=== PATIENT | female | born 1935 | race Caucasian/White ===

== ENCOUNTER 2019-06-04 09:29 | Inpatient (IN) | payer MEDICARE, BC ==
[2019-06-04 10:06] LABS: ADD MAN DIFF? NO
[2019-06-04] MEDS: ONDANSETRON 4 MG INJ IV (10:08)
[2019-06-04] MEDS: morphine 4 MG/ML VIAL IV (10:09)
[2019-06-04 10:17] LABS: WHITE BLOOD COUNT 13.1 10^3/ul (4.8-10.8)
[2019-06-04 10:17] LABS: ABNORMAL IP MESSAGE 1; BASOPHILS % 0.2 % (0.0-2.0); EOSINOPHILS % 0.1 % (0.0-7.0); HEMATOCRIT 41.4 % (37.0-47.0); LYMPHOCYTES # 0.6 10^3/ul (0.8-2.9); LYMPHOCYTES % 4.4 % (15.0-51.0); MEAN CORPUSCULAR HEMOGLOBIN 29.8 pg (29.0-33.0); MEAN CORPUSCULAR HGB CONC 33.8 g/dl (32.0-37.0); MEAN CORPUSCULAR VOLUME 88.1 fl (82.0-101.0); MEAN PLATELET VOLUME 12.7 fl (7.4-10.4); MONOCYTE # 0.9 10^3/ul (0.3-0.9); MONOCYTES % 7.1 % (0.0-11.0); NEUTROPHIL # 11.5 10^3/ul (1.6-7.5); NEUTROPHILS % 87.7 % (39.0-77.0); PLATELET COUNT 140 10^3/UL (140-415); RED CELL DISTRIBUTION WIDTH 12.3 % (11.5-14.5)
[2019-06-04 10:19] LABS: POSITIVE DIFF @See below
[2019-06-04 10:31] LABS: ALANINE AMINOTRANSFERASE 25 IU/L (13-69); ALBUMIN 4.6 g/dl (3.3-4.9); ALBUMIN/GLOBULIN RATIO 1.48; ALKALINE PHOSPHATASE 62 IU/L (42-121); ANION GAP 14 (5-13); ASPARTATE AMINO TRANSFERASE 48 IU/L (15-46); BILIRUBIN,INDIRECT 0.8 mg/dl (0-1.1); BILIRUBIN,TOTAL 0.8 mg/dl (0.2-1.3); BLOOD UREA NITROGEN 20 mg/dl (7-20); CARBON DIOXIDE 23 mmol/L (21-31); CHLORIDE 104 mmol/L (97-110); CREATININE 0.63 mg/dl (0.44-1.00); GLUCOSE 212 mg/dl (70-220); INR 0.94; POTASSIUM 4.2 mmol/L (3.5-5.1); PROTIME 12.7 Sec (11.9-14.9); SODIUM 141 mmol/L (135-144); TOTAL PROTEIN 7.7 g/dl (6.1-8.1)
[2019-06-04 10:32] LABS: PARTIAL THROMBOPLASTIN TIME 24.6 Sec (23.0-35.0)
[2019-06-04 10:42] LABS: TROPONIN-I 0.018 ng/ml (0.000-0.120)
[2019-06-04] MEDS ORDERED: ONDANSETRON 4 MG INJ IV (11:00)
[2019-06-04] MEDS ORDERED: ACETAMINOPHEN 325 MG TAB PO ×2 (11:00→12:00)
[2019-06-04] MEDS: LIDOCAINE 2% VISC 15 ML CUP PO (11:55)
[2019-06-04] MEDS ORDERED: DOCUSATE SODIUM 100 MG CAP PO (12:00)
[2019-06-04] MEDS ORDERED: BISACODYL (EC) 5 MG TAB PO (12:00)
[2019-06-04] MEDS ORDERED: HYDROCODONE/APAP (5/325) TAB PO (12:00)
[2019-06-04] MEDS ORDERED: MAGNESIUM HYDROXIDE 30ML CUP PO (12:00)
[2019-06-04] MEDS ORDERED: ZOLPIDEM 5 MG TAB PO (12:00)
[2019-06-04] MEDS ORDERED: NA PHOSPHATE/BIPHOS 133 ML ENEMA PR (12:00)
[2019-06-04 12:03] LABS: ADD UMIC YES; UR ASCORBIC ACID 40 mg/dL (NEGATIVE); UR BACTERIA FEW /HPF (NONE SEEN); UR BILIRUBIN (Dip) NEGATIVE (NEGATIVE); UR BLOOD (Dip) NEGATIVE (NEGATIVE); UR CLARITY SLIGHTLY CLOUDY (CLEAR); UR COLOR YELLOW (YELLOW); UR GLUCOSE (Dip) 3+ mg/dL (NEGATIVE); UR KETONES (Dip) 1+ mg/dL (NEGATIVE); UR LEUKOCYTE ESTERASE (Dip) 1+ Leu/ul (NEGATIVE); UR MUCUS FEW /HPF (NONE SEEN); UR NITRITE (Dip) NEGATIVE (NEGATIVE); UR RBC 2 /HPF (0-5); UR SPECIFIC GRAVITY (Dip) 1.022 (1.003-1.030); UR TOTAL PROTEIN (Dip) NEGATIVE (NEGATIVE); UR UROBILINOGEN (Dip) NEGATIVE (NEGATIVE); UR WBC 36 /HPF (0-5)
[2019-06-04] MEDS: SOD CHLORIDE 0.9% 1,000 ML IV ×2 (12:21→21:25)
[2019-06-04] MEDS: HYDROCODONE/APAP (5/325) TAB PO ×2 (15:32→21:25)
[2019-06-05 05:50] LABS: ADD MAN DIFF? NO
[2019-06-05 05:55] LABS: WHITE BLOOD COUNT 9.3 10^3/ul (4.8-10.8)
[2019-06-05 05:55] LABS: ABNORMAL IP MESSAGE 1; BASOPHILS % 0.4 % (0.0-2.0); EOSINOPHILS # 0.1 10^3/ul (0.0-0.5); EOSINOPHILS % 1.1 % (0.0-7.0); HEMATOCRIT 31.1 % (37.0-47.0); HEMOGLOBIN 10.5 g/dl (12.0-16.0); LYMPHOCYTES # 2.1 10^3/ul (0.8-2.9); MEAN CORPUSCULAR HEMOGLOBIN 30.3 pg (29.0-33.0); MEAN CORPUSCULAR HGB CONC 33.8 g/dl (32.0-37.0); MEAN CORPUSCULAR VOLUME 89.6 fl (82.0-101.0); MEAN PLATELET VOLUME 12.7 fl (7.4-10.4); NEUTROPHILS % 64.1 % (39.0-77.0); PLATELET COUNT 86 10^3/UL (140-415); RED BLOOD COUNT 3.47 10^6/ul (4.20-5.40)
[2019-06-05 06:36] LABS: POSITIVE DIFF @See below
[2019-06-05 06:40] LABS: ALANINE AMINOTRANSFERASE 39 IU/L (13-69); ALBUMIN 2.9 g/dl (3.3-4.9); ALKALINE PHOSPHATASE 40 IU/L (42-121); ANION GAP 3 (5-13); ASPARTATE AMINO TRANSFERASE 84 IU/L (15-46); BILIRUBIN,INDIRECT 0.6 mg/dl (0-1.1); BILIRUBIN,TOTAL 0.6 mg/dl (0.2-1.3); BLOOD UREA NITROGEN 17 mg/dl (7-20); CALCIUM 8.1 mg/dl (8.4-10.2); CARBON DIOXIDE 29 mmol/L (21-31); CHLORIDE 109 mmol/L (97-110); CREATININE 0.72 mg/dl (0.44-1.00); GLUCOSE 110 mg/dl (70-220); SODIUM 141 mmol/L (135-144); TOTAL PROTEIN 5.3 g/dl (6.1-8.1)
[2019-06-05] MEDS: SOD CHLORIDE 0.9% 1,000 ML IV ×4 (07:38→18:47)
[2019-06-05 08:39] LABS: HEMOGLOBIN A1C 5.1 % (0-5.9)
[2019-06-05] MEDS: morphine 2 MG INJ IV (09:49)
[2019-06-05 11:50] LABS: ADD MAN DIFF? NO
[2019-06-05 11:53] LABS: ABNORMAL IP MESSAGE 1; BASOPHILS % 0.3 % (0.0-2.0); EOSINOPHILS # 0.1 10^3/ul (0.0-0.5); EOSINOPHILS % 0.7 % (0.0-7.0); HEMOGLOBIN 10.2 g/dl (12.0-16.0); LYMPHOCYTES # 1.3 10^3/ul (0.8-2.9); LYMPHOCYTES % 14.2 % (15.0-51.0); MEAN CORPUSCULAR HEMOGLOBIN 29.6 pg (29.0-33.0); MEAN CORPUSCULAR HGB CONC 32.9 g/dl (32.0-37.0); MEAN CORPUSCULAR VOLUME 89.9 fl (82.0-101.0); MEAN PLATELET VOLUME 12.6 fl (7.4-10.4); MONOCYTE # 0.9 10^3/ul (0.3-0.9); MONOCYTES % 9.8 % (0.0-11.0); NEUTROPHIL # 6.6 10^3/ul (1.6-7.5); NEUTROPHILS % 74.6 % (39.0-77.0); PLATELET COUNT 78 10^3/UL (140-415); RED BLOOD COUNT 3.45 10^6/ul (4.20-5.40); RED CELL DISTRIBUTION WIDTH 12.9 % (11.5-14.5)
[2019-06-05 11:53] LABS: WHITE BLOOD COUNT 8.9 10^3/ul (4.8-10.8)
[2019-06-05 11:57] LABS: POSITIVE DIFF @See below
[2019-06-05 13:00] LABS: TYPE AND SCREEN 1
[2019-06-05] MEDS ORDERED: ONDANSETRON 4 MG INJ (13:08)
[2019-06-05] MEDS ORDERED: CEFAZOLIN 1 GM INJ (13:08)
[2019-06-05] MEDS ORDERED: GLYCOPYRROLATE 0.4 MG INJ (13:08)
[2019-06-05] MEDS ORDERED: DEXAMETHASONE 4 MG/ML 5 ML INJ (13:08)
[2019-06-05] MEDS ORDERED: PROPOFOL 200 MG INJ (13:08)
[2019-06-05] MEDS ORDERED: SEVOFLURANE 15 MIN (13:08)
[2019-06-05] MEDS ORDERED: ROCURONIUM 50 MG INJ (13:08)
[2019-06-05] MEDS ORDERED: NEOSTIGMINE 3 MG/3 ML SYRINGE (13:08)
[2019-06-05] MEDS ORDERED: LIDOCAINE 2% (SDV) 5 ML INJ (13:08)
[2019-06-05] MEDS ORDERED: ESMOLOL 100 MG INJ (13:08)
[2019-06-05] MEDS ORDERED: morphine 2 MG INJ IV ×2 (13:30)
[2019-06-05] MEDS ORDERED: LABETALOL HCL 20MG INJ IV (13:30)
[2019-06-05] MEDS ORDERED: FENTAnyl 50 MCG/ML VIAL IV ×2 (13:30)
[2019-06-05] MEDS ORDERED: ALBUMIN HUMAN 5% 250 ML IV (13:30)
[2019-06-05] MEDS ORDERED: ONDANSETRON 4 MG INJ IV (13:30)
[2019-06-05] MEDS: POLYMYXIN/BACITRACIN 1L IRRIG (14:44)
[2019-06-05] MEDS ORDERED: HYDROmorphONE 2 MG/ML SYG (14:51)
[2019-06-05] MEDS: ACETAMINOPHEN 1000MG/100ML IV 100 ML IVPB (16:00)
[2019-06-05 16:16] LABS: ADD MAN DIFF? NO
[2019-06-05 16:20] LABS: BASOPHILS % 0.4 % (0.0-2.0); EOSINOPHILS # 0.1 10^3/ul (0.0-0.5); EOSINOPHILS % 0.6 % (0.0-7.0); HEMATOCRIT 23.1 % (37.0-47.0); HEMOGLOBIN 7.7 g/dl (12.0-16.0); LYMPHOCYTES # 0.7 10^3/ul (0.8-2.9); LYMPHOCYTES % 6.9 % (15.0-51.0); MEAN CORPUSCULAR HEMOGLOBIN 30.3 pg (29.0-33.0); MEAN CORPUSCULAR HGB CONC 33.3 g/dl (32.0-37.0); MEAN CORPUSCULAR VOLUME 90.9 fl (82.0-101.0); MEAN PLATELET VOLUME 11.3 fl (7.4-10.4); MONOCYTE # 0.7 10^3/ul (0.3-0.9); MONOCYTES % 6.3 % (0.0-11.0); NEUTROPHIL # 8.9 10^3/ul (1.6-7.5); NEUTROPHILS % 84.8 % (39.0-77.0); PLATELET COUNT 108 10^3/UL (140-415); RED BLOOD COUNT 2.54 10^6/ul (4.20-5.40)
[2019-06-05 16:20] LABS: WHITE BLOOD COUNT 10.4 10^3/ul (4.8-10.8)
[2019-06-05] MEDS ORDERED: morphine 4 MG/ML VIAL IV (17:30)
[2019-06-05 18:17] LABS: ADD MAN DIFF? NO
[2019-06-05 18:20] LABS: BASOPHILS % 0.2 % (0.0-2.0); EOSINOPHILS % 0.1 % (0.0-7.0); HEMATOCRIT 25.9 % (37.0-47.0); HEMOGLOBIN 8.7 g/dl (12.0-16.0); LYMPHOCYTES # 0.8 10^3/ul (0.8-2.9); LYMPHOCYTES % 5.7 % (15.0-51.0); MEAN CORPUSCULAR HEMOGLOBIN 30.6 pg (29.0-33.0); MEAN CORPUSCULAR HGB CONC 33.6 g/dl (32.0-37.0); MEAN CORPUSCULAR VOLUME 91.2 fl (82.0-101.0); MEAN PLATELET VOLUME 11.5 fl (7.4-10.4); MONOCYTE # 0.8 10^3/ul (0.3-0.9); MONOCYTES % 5.3 % (0.0-11.0); NEUTROPHIL # 12.7 10^3/ul (1.6-7.5); NEUTROPHILS % 87.9 % (39.0-77.0); PLATELET COUNT 121 10^3/UL (140-415); RED BLOOD COUNT 2.84 10^6/ul (4.20-5.40)
[2019-06-05 18:20] LABS: WHITE BLOOD COUNT 14.5 10^3/ul (4.8-10.8)
[2019-06-05 19:23] LABS: ANION GAP 8 (5-13); BLOOD UREA NITROGEN 14 mg/dl (7-20); CALCIUM 7.3 mg/dl (8.4-10.2); CARBON DIOXIDE 22 mmol/L (21-31); CHLORIDE 109 mmol/L (97-110); CREATININE 0.56 mg/dl (0.44-1.00); GLUCOSE 149 mg/dl (70-220); SODIUM 139 mmol/L (135-144)
[2019-06-05] MEDS: ONDANSETRON 4 MG INJ IV (19:32)
[2019-06-05] MEDS: NACL 0.9% 3 ML SYG IV (19:33)
[2019-06-06] MEDS: SOD CHLORIDE 0.9% 1,000 ML IV ×3 (01:33→21:10)
[2019-06-06 05:45] LABS: WHITE BLOOD COUNT 9.2 10^3/ul (4.8-10.8)
[2019-06-06 05:45] LABS: ADD MAN DIFF? NO; BASOPHILS % 0.1 % (0.0-2.0); HEMOGLOBIN 7.2 g/dl (12.0-16.0); LYMPHOCYTES # 0.6 10^3/ul (0.8-2.9); LYMPHOCYTES % 6.9 % (15.0-51.0); MEAN CORPUSCULAR HEMOGLOBIN 29.8 pg (29.0-33.0); MEAN CORPUSCULAR HGB CONC 32.7 g/dl (32.0-37.0); MEAN CORPUSCULAR VOLUME 90.9 fl (82.0-101.0); MEAN PLATELET VOLUME 12.1 fl (7.4-10.4); MONOCYTE # 0.9 10^3/ul (0.3-0.9); MONOCYTES % 9.6 % (0.0-11.0); NEUTROPHIL # 7.6 10^3/ul (1.6-7.5); NEUTROPHILS % 83.1 % (39.0-77.0); PLATELET COUNT 108 10^3/UL (140-415); RED BLOOD COUNT 2.42 10^6/ul (4.20-5.40); RED CELL DISTRIBUTION WIDTH 12.9 % (11.5-14.5)
[2019-06-06 06:02] LABS: INR 1.16; PROTIME 14.9 Sec (11.9-14.9); PT RATIO 1.2
[2019-06-06 06:07] LABS: ANION GAP 8 (5-13); BLOOD UREA NITROGEN 15 mg/dl (7-20); CALCIUM 7.5 mg/dl (8.4-10.2); CARBON DIOXIDE 21 mmol/L (21-31); CHLORIDE 112 mmol/L (97-110); CREATININE 0.58 mg/dl (0.44-1.00); GLUCOSE 125 mg/dl (70-220); POTASSIUM 3.9 mmol/L (3.5-5.1); SODIUM 141 mmol/L (135-144)
[2019-06-06] MEDS: FERROUS SULFATE (EC) 325 MG TAB PO (21:10)
[2019-06-06] MEDS: DICLOFENAC SODIUM 1% GEL 100 GM TUBE TP (21:10)
[2019-06-07] MEDS: HYDROCODONE/APAP (5/325) TAB PO ×2 (04:41→11:48)
[2019-06-07 05:21] LABS: ADD MAN DIFF? NO
[2019-06-07 05:25] LABS: ABNORMAL IP MESSAGE 1; BASOPHILS % 0.2 % (0.0-2.0); EOSINOPHILS # 0.1 10^3/ul (0.0-0.5); EOSINOPHILS % 0.7 % (0.0-7.0); LYMPHOCYTES # 1.5 10^3/ul (0.8-2.9); LYMPHOCYTES % 16.4 % (15.0-51.0); MEAN CORPUSCULAR HEMOGLOBIN 30.4 pg (29.0-33.0); MEAN CORPUSCULAR VOLUME 89.3 fl (82.0-101.0); MEAN PLATELET VOLUME 11.9 fl (7.4-10.4); MONOCYTES % 10.7 % (0.0-11.0); NEUTROPHIL # 6.6 10^3/ul (1.6-7.5); NEUTROPHILS % 71.6 % (39.0-77.0); PLATELET COUNT 121 10^3/UL (140-415); RED BLOOD COUNT 2.24 10^6/ul (4.20-5.40); RED CELL DISTRIBUTION WIDTH 13.2 % (11.5-14.5)
[2019-06-07 05:25] LABS: WHITE BLOOD COUNT 9.2 10^3/ul (4.8-10.8)
[2019-06-07 05:55] LABS: INR 1.16; PROTIME 14.9 Sec (11.9-14.9); PT RATIO 1.2
[2019-06-07 06:07] LABS: HEMOGLOBIN 6.8 g/dl (12.0-16.0); POSITIVE DIFF @See below
[2019-06-07 06:11] LABS: ANION GAP 6 (5-13); BLOOD UREA NITROGEN 14 mg/dl (7-20); CALCIUM 7.8 mg/dl (8.4-10.2); CARBON DIOXIDE 22 mmol/L (21-31); CHLORIDE 112 mmol/L (97-110); CREATININE 0.54 mg/dl (0.44-1.00); GLUCOSE 129 mg/dl (70-220); POTASSIUM 3.6 mmol/L (3.5-5.1); SODIUM 140 mmol/L (135-144)
[2019-06-07 07:47] LABS: IMMEDIATE SPIN CROSSMATCH 1 3
[2019-06-07] MEDS: FERROUS SULFATE (EC) 325 MG TAB PO ×3 (09:40→21:23)
[2019-06-07] MEDS: DICLOFENAC SODIUM 1% GEL 100 GM TUBE TP ×4 (09:40→21:23)
[2019-06-07] MEDS: SOD CHLORIDE 0.9% 250 ML IV* (09:45)
[2019-06-07] MEDS: METHYLNALTREXONE 12 MG/0.6 ML VIAL SC (21:23)
[2019-06-08 05:15] LABS: ADD MAN DIFF? NO
[2019-06-08 05:20] LABS: BASOPHILS % 0.4 % (0.0-2.0); EOSINOPHILS # 0.2 10^3/ul (0.0-0.5); EOSINOPHILS % 2.2 % (0.0-7.0); HEMATOCRIT 25.1 % (37.0-47.0); HEMOGLOBIN 8.3 g/dl (12.0-16.0); LYMPHOCYTES # 1.7 10^3/ul (0.8-2.9); LYMPHOCYTES % 19.4 % (15.0-51.0); MEAN CORPUSCULAR HEMOGLOBIN 29.5 pg (29.0-33.0); MEAN CORPUSCULAR HGB CONC 33.1 g/dl (32.0-37.0); MEAN CORPUSCULAR VOLUME 89.3 fl (82.0-101.0); MEAN PLATELET VOLUME 11.2 fl (7.4-10.4); MONOCYTE # 0.8 10^3/ul (0.3-0.9); MONOCYTES % 9.2 % (0.0-11.0); NEUTROPHIL # 6.1 10^3/ul (1.6-7.5); NEUTROPHILS % 68.2 % (39.0-77.0); NUCLEATED RED BLOOD CELLS # 0.1 10^3/ul (0.0-0.0); PLATELET COUNT 154 10^3/UL (140-415); RED BLOOD COUNT 2.81 10^6/ul (4.20-5.40); RED CELL DISTRIBUTION WIDTH 13.2 % (11.5-14.5)
[2019-06-08 05:20] LABS: WHITE BLOOD COUNT 8.9 10^3/ul (4.8-10.8)
[2019-06-08 05:38] LABS: INR 1.08; PROTIME 14.1 Sec (11.9-14.9); PT RATIO 1.1
[2019-06-08 05:42] LABS: ANION GAP 5 (5-13); BLOOD UREA NITROGEN 15 mg/dl (7-20); CARBON DIOXIDE 24 mmol/L (21-31); CHLORIDE 111 mmol/L (97-110); CREATININE 0.54 mg/dl (0.44-1.00); GLUCOSE 118 mg/dl (70-220); POTASSIUM 3.7 mmol/L (3.5-5.1); SODIUM 140 mmol/L (135-144)
[2019-06-08] MEDS: DICLOFENAC SODIUM 1% GEL 100 GM TUBE TP ×4 (08:53→22:08)
[2019-06-08] MEDS: OXYBUTYNIN (XL) 5 MG TAB PO (08:57)
[2019-06-08] MEDS: FERROUS SULFATE (EC) 325 MG TAB PO ×3 (08:57→22:08)
[2019-06-08] MEDS: NACL 0.9% 3 ML SYG IV (08:58)
[2019-06-08] MEDS: morphine 2 MG INJ IV (14:21)
[2019-06-09] MEDS: HYDROCODONE/APAP (5/325) TAB PO (05:17)
[2019-06-09 05:57] LABS: PROTIME 14.3 Sec (11.9-14.9); PT RATIO 1.1
[2019-06-09] MEDS: OXYBUTYNIN (XL) 5 MG TAB PO (09:25)
[2019-06-09] MEDS: FERROUS SULFATE (EC) 325 MG TAB PO ×2 (09:25→12:55)
[2019-06-09] MEDS: ENOXAPARIN 30 MG/0.3 ML SYG SC (09:30)
[2019-06-09] MEDS: DICLOFENAC SODIUM 1% GEL 100 GM TUBE TP ×3 (09:31→18:32)
[2019-06-09] MEDS: METHYLNALTREXONE 12 MG/0.6 ML VIAL SC (18:38)
== END 2019-06-09 18:50 | DRG 481 ==
LOC: E/R 09:29 → 2NE 10:50
PROC: 0QS606Z Reposition Right Upper Femur with Intramedullary Internal Fixation Device, Open Approach (ICD-10-PCS; principal; 2019-06-05 13:00)
PROC: 30233R1 Transfusion of Nonautologous Platelets into Peripheral Vein, Percutaneous Approach (ICD-10-PCS; 2019-06-05 13:41)
PROC: 30233N1 Transfusion of Nonautologous Red Blood Cells into Peripheral Vein, Percutaneous Approach (ICD-10-PCS; 2019-06-05 13:41)
DX: S72.141A Displaced intertrochanteric fracture of right femur, initial encounter for closed fracture (principal); D62 Acute posthemorrhagic anemia; D69.6 Thrombocytopenia, unspecified; N39.41 Urge incontinence; S72.21XA Displaced subtrochanteric fracture of right femur, initial encounter for closed fracture; M81.0 Age-related osteoporosis without current pathological fracture; K59.03 Drug induced constipation; W18.30XA Fall on same level, unspecified, initial encounter; Y92.017 Garden or yard in single-family (private) house as the place of occurrence of the external cause
CPT/HCPCS: 36415; 36430; 71045; 72170; 73510; 73530; 80048; 80053; 81001; 83036; 83735; 84443; 84484; 85025; 85610; 85730; 86644; 86850; 86900; 86901; 86920; 86945; 93005; 96374; 96375; 97110; 97163; 97530; 99285-25

== ENCOUNTER 2019-06-09 19:20 | Inpatient (IN) | payer MEDICARE, BC ==
[2019-06-09] MEDS ORDERED: BISACODYL (EC) 5 MG TAB PO (20:00)
[2019-06-09] MEDS ORDERED: ZOLPIDEM 5 MG TAB PO (20:00)
[2019-06-09] MEDS ORDERED: HYDROCODONE/APAP (5/325) TAB PO (20:00)
[2019-06-09] MEDS ORDERED: NA PHOSPHATE/BIPHOS 133 ML ENEMA PR (20:00)
[2019-06-09] MEDS ORDERED: MAGNESIUM HYDROXIDE 30ML CUP PO (20:00)
[2019-06-09] MEDS ORDERED: morphine 2 MG INJ IV (20:00)
[2019-06-09] MEDS ORDERED: ACETAMINOPHEN 325 MG TAB PO (20:00)
[2019-06-09] MEDS ORDERED: DOCUSATE SODIUM 100 MG CAP PO (20:00)
[2019-06-09] MEDS ORDERED: morphine 4 MG/ML VIAL IV (20:00)
[2019-06-09] MEDS: FERROUS SULFATE (EC) 325 MG TAB PO (20:37)
[2019-06-09] MEDS: DICLOFENAC SODIUM 1% GEL 100 GM TUBE TP (21:29)
[2019-06-09] MEDS ORDERED: PENDING SANTYL ORDER FOR WOUND CARE XX (22:30)
[2019-06-10] MEDS: HYDROCODONE/APAP (5/325) TAB PO ×2 (05:35→09:35)
[2019-06-10 07:29] LABS: ADD MAN DIFF? NO
[2019-06-10 07:35] LABS: ADD UMIC YES; UR ASCORBIC ACID NEGATIVE (NEGATIVE); UR BACTERIA MODERATE /HPF (NONE SEEN); UR BILIRUBIN (Dip) NEGATIVE (NEGATIVE); UR BLOOD (Dip) NEGATIVE (NEGATIVE); UR CLARITY CLOUDY (CLEAR); UR COLOR AMBER (YELLOW); UR GLUCOSE (Dip) NEGATIVE (NEGATIVE); UR KETONES (Dip) NEGATIVE (NEGATIVE); UR LEUKOCYTE ESTERASE (Dip) 2+ Leu/ul (NEGATIVE); UR NITRITE (Dip) NEGATIVE (NEGATIVE); UR RBC 3 /HPF (0-5); UR SPECIFIC GRAVITY (Dip) 1.019 (1.003-1.030); UR TOTAL PROTEIN (Dip) 1+ mg/dl (NEGATIVE); UR UROBILINOGEN (Dip) NEGATIVE (NEGATIVE); UR WBC > 182 /HPF (0-5)
[2019-06-10 07:40] LABS: BASOPHIL # 0.1 10^3/ul (0.0-0.1); BASOPHILS % 0.6 % (0.0-2.0); EOSINOPHILS # 0.3 10^3/ul (0.0-0.5); EOSINOPHILS % 4.1 % (0.0-7.0); HEMATOCRIT 24.8 % (37.0-47.0); HEMOGLOBIN 8.2 g/dl (12.0-16.0); LYMPHOCYTES % 24.7 % (15.0-51.0); MEAN CORPUSCULAR HEMOGLOBIN 30.1 pg (29.0-33.0); MEAN CORPUSCULAR HGB CONC 33.1 g/dl (32.0-37.0); MEAN CORPUSCULAR VOLUME 91.2 fl (82.0-101.0); MEAN PLATELET VOLUME 11.2 fl (7.4-10.4); MONOCYTE # 0.7 10^3/ul (0.3-0.9); MONOCYTES % 9.2 % (0.0-11.0); NEUTROPHIL # 4.8 10^3/ul (1.6-7.5); NEUTROPHILS % 60.5 % (39.0-77.0); NUCLEATED RED BLOOD CELLS # 0.1 10^3/ul (0.0-0.0); NUCLEATED RED BLOOD CELLS% 1.5 /100WBC (0.0-0.0); PLATELET COUNT 181 10^3/UL (140-415); RED BLOOD COUNT 2.72 10^6/ul (4.20-5.40); RED CELL DISTRIBUTION WIDTH 13.9 % (11.5-14.5)
[2019-06-10 08:03] LABS: ALANINE AMINOTRANSFERASE 40 IU/L (13-69); ALBUMIN 2.6 g/dl (3.3-4.9); ALBUMIN/GLOBULIN RATIO 1.04; ALKALINE PHOSPHATASE 38 IU/L (42-121); ANION GAP 5 (5-13); ASPARTATE AMINO TRANSFERASE 28 IU/L (15-46); BLOOD UREA NITROGEN 17 mg/dl (7-20); CARBON DIOXIDE 26 mmol/L (21-31); CHLORIDE 108 mmol/L (97-110); CREATININE 0.59 mg/dl (0.44-1.00); GLUCOSE 104 mg/dl (70-220); POTASSIUM 3.9 mmol/L (3.5-5.1); SODIUM 139 mmol/L (135-144); TOTAL PROTEIN 5.1 g/dl (6.1-8.1)
[2019-06-10] MEDS: TRIMETHOPRIM/SULFAMETHOX (DS) TAB PO (09:30)
[2019-06-10] MEDS: FERROUS SULFATE (EC) 325 MG TAB PO ×3 (09:33→20:31)
[2019-06-10] MEDS: OXYBUTYNIN (XL) 5 MG TAB PO (09:33)
[2019-06-10] MEDS: DICLOFENAC SODIUM 1% GEL 100 GM TUBE TP ×4 (09:34→20:31)
[2019-06-10] MEDS: ENOXAPARIN 30 MG/0.3 ML SYG SC (10:09)
[2019-06-10] MEDS: NITROFURANTOIN (SR) 100 MG CAP PO (21:21)
[2019-06-10] MEDS: SACCHAROMYCES BOULARDII 250 MG CAP PO (21:23)
[2019-06-10] MEDS ORDERED: MAGNESIUM HYDROXIDE 30ML CUP PO (23:00)
[2019-06-10] MEDS ORDERED: LACTULOSE 30ML CUP PO (23:00)
[2019-06-10] MEDS ORDERED: BISACODYL 10 MG SUPP PR (23:00)
[2019-06-11] MEDS: HYDROCODONE/APAP (5/325) TAB PO (06:56)
[2019-06-11] MEDS: SACCHAROMYCES BOULARDII 250 MG CAP PO ×2 (09:21→20:17)
[2019-06-11] MEDS: DOCUSATE SODIUM 100 MG CAP PO ×2 (09:22→20:18)
[2019-06-11] MEDS: NITROFURANTOIN (SR) 100 MG CAP PO ×2 (09:23→20:17)
[2019-06-11] MEDS: FERROUS SULFATE (EC) 325 MG TAB PO ×3 (09:23→20:17)
[2019-06-11] MEDS: DICLOFENAC SODIUM 1% GEL 100 GM TUBE TP ×4 (09:23→20:17)
[2019-06-11] MEDS: OXYBUTYNIN (XL) 5 MG TAB PO (09:23)
[2019-06-11] MEDS: ENOXAPARIN 30 MG/0.3 ML SYG SC (09:24)
[2019-06-11] MEDS: ONDANSETRON 4 MG INJ IV (14:38)
[2019-06-11] MEDS: METHYLNALTREXONE 12 MG/0.6 ML VIAL SC (18:20)
[2019-06-11] MEDS: SENNA TAB PO (20:18)
[2019-06-12] MEDS: NITROFURANTOIN (SR) 100 MG CAP PO ×2 (07:55→20:23)
[2019-06-12] MEDS: OXYBUTYNIN (XL) 5 MG TAB PO (07:56)
[2019-06-12] MEDS: FERROUS SULFATE (EC) 325 MG TAB PO ×3 (07:56→20:23)
[2019-06-12] MEDS: OXYCODONE/ACETAMINOPHEN (5/325) TAB PO (07:57)
[2019-06-12] MEDS: DICLOFENAC SODIUM 1% GEL 100 GM TUBE TP ×4 (07:57→20:25)
[2019-06-12] MEDS: DOCUSATE SODIUM 100 MG CAP PO ×2 (07:57→20:23)
[2019-06-12] MEDS: ONDANSETRON (ODT) 4 MG TAB ODT (08:01)
[2019-06-12] MEDS: ENOXAPARIN 30 MG/0.3 ML SYG SC (08:01)
[2019-06-12] MEDS: SACCHAROMYCES BOULARDII 250 MG CAP PO ×2 (09:00→20:24)
[2019-06-12] MEDS: SENNA TAB PO (20:23)
[2019-06-13] MEDS: ONDANSETRON (ODT) 4 MG TAB ODT (00:03)
[2019-06-13] MEDS: OXYCODONE/ACETAMINOPHEN (5/325) TAB PO ×2 (07:38→12:00)
[2019-06-13] MEDS: NITROFURANTOIN (SR) 100 MG CAP PO ×2 (08:40→20:08)
[2019-06-13] MEDS: OXYBUTYNIN (XL) 5 MG TAB PO (08:40)
[2019-06-13] MEDS: FERROUS SULFATE (EC) 325 MG TAB PO ×3 (08:40→20:08)
[2019-06-13] MEDS: DOCUSATE SODIUM 100 MG CAP PO ×2 (08:40→20:08)
[2019-06-13] MEDS: SACCHAROMYCES BOULARDII 250 MG CAP PO ×2 (08:40→20:08)
[2019-06-13] MEDS: DICLOFENAC SODIUM 1% GEL 100 GM TUBE TP ×4 (08:40→20:08)
[2019-06-13] MEDS: ENOXAPARIN 30 MG/0.3 ML SYG SC (08:41)
[2019-06-13] MEDS: METHYLNALTREXONE 12 MG/0.6 ML VIAL SC (18:01)
[2019-06-13] MEDS: SENNA TAB PO (20:08)
[2019-06-14] MEDS: OXYCODONE/ACETAMINOPHEN (5/325) TAB PO (07:14)
[2019-06-14 07:24] LABS: ADD MAN DIFF? NO
[2019-06-14 07:33] LABS: WHITE BLOOD COUNT 8.2 10^3/ul (4.8-10.8)
[2019-06-14 07:33] LABS: BASOPHILS % 0.5 % (0.0-2.0); EOSINOPHILS # 0.3 10^3/ul (0.0-0.5); EOSINOPHILS % 3.2 % (0.0-7.0); HEMATOCRIT 28.8 % (37.0-47.0); HEMOGLOBIN 8.8 g/dl (12.0-16.0); LYMPHOCYTES % 24.6 % (15.0-51.0); MEAN CORPUSCULAR HEMOGLOBIN 30.2 pg (29.0-33.0); MEAN CORPUSCULAR HGB CONC 30.6 g/dl (32.0-37.0); MEAN PLATELET VOLUME 11.3 fl (7.4-10.4); MONOCYTE # 0.8 10^3/ul (0.3-0.9); MONOCYTES % 10.3 % (0.0-11.0); NEUTROPHIL # 4.9 10^3/ul (1.6-7.5); NEUTROPHILS % 60.1 % (39.0-77.0); NUCLEATED RED BLOOD CELLS # 0.1 10^3/ul (0.0-0.0); NUCLEATED RED BLOOD CELLS% 0.7 /100WBC (0.0-0.0); PLATELET COUNT 213 10^3/UL (140-415); RED BLOOD COUNT 2.91 10^6/ul (4.20-5.40); RED CELL DISTRIBUTION WIDTH 16.7 % (11.5-14.5)
[2019-06-14 07:53] LABS: ANION GAP 3 (5-13); BLOOD UREA NITROGEN 16 mg/dl (7-20); CALCIUM 8.7 mg/dl (8.4-10.2); CARBON DIOXIDE 29 mmol/L (21-31); CHLORIDE 104 mmol/L (97-110); CREATININE 0.73 mg/dl (0.44-1.00); GLUCOSE 102 mg/dl (70-220); POTASSIUM 4.5 mmol/L (3.5-5.1); SODIUM 136 mmol/L (135-144)
[2019-06-14] MEDS: NITROFURANTOIN (SR) 100 MG CAP PO ×2 (09:00→20:10)
[2019-06-14] MEDS: SACCHAROMYCES BOULARDII 250 MG CAP PO ×2 (09:00→20:09)
[2019-06-14] MEDS: FERROUS SULFATE (EC) 325 MG TAB PO ×3 (09:00→20:09)
[2019-06-14] MEDS: DOCUSATE SODIUM 100 MG CAP PO ×2 (09:00→20:10)
[2019-06-14] MEDS: DICLOFENAC SODIUM 1% GEL 100 GM TUBE TP ×4 (09:01→20:10)
[2019-06-14] MEDS: OXYBUTYNIN (XL) 5 MG TAB PO ×2 (09:01→20:10)
[2019-06-14] MEDS: ENOXAPARIN 30 MG/0.3 ML SYG SC (09:13)
[2019-06-14] MEDS: SENNA TAB PO (20:10)
[2019-06-15] MEDS: OXYCODONE/ACETAMINOPHEN (5/325) TAB PO (06:02)
[2019-06-15] MEDS: OXYBUTYNIN (XL) 5 MG TAB PO ×2 (09:37→21:02)
[2019-06-15] MEDS: DOCUSATE SODIUM 100 MG CAP PO ×2 (09:38→21:02)
[2019-06-15] MEDS: NITROFURANTOIN (SR) 100 MG CAP PO ×2 (09:38→21:02)
[2019-06-15] MEDS: SACCHAROMYCES BOULARDII 250 MG CAP PO ×2 (09:48→21:02)
[2019-06-15] MEDS: FERROUS SULFATE (EC) 325 MG TAB PO ×3 (09:53→21:02)
[2019-06-15] MEDS: DICLOFENAC SODIUM 1% GEL 100 GM TUBE TP ×4 (09:55→21:00)
[2019-06-15] MEDS: ENOXAPARIN 30 MG/0.3 ML SYG SC (09:56)
[2019-06-15] MEDS ORDERED: ALUMINUM HYDROXIDE 30 ML CUP PO (20:30)
[2019-06-15] MEDS ORDERED: RANITIDINE 150 MG TAB PO (20:30)
[2019-06-15] MEDS: SENNA TAB PO (21:02)
[2019-06-15] MEDS: METHYLNALTREXONE 12 MG/0.6 ML VIAL SC (21:07)
[2019-06-16] MEDS: OXYCODONE/ACETAMINOPHEN (5/325) TAB PO ×2 (06:34→13:23)
[2019-06-16] MEDS: DOCUSATE SODIUM 100 MG CAP PO ×2 (07:55→20:57)
[2019-06-16] MEDS: FERROUS SULFATE (EC) 325 MG TAB PO ×3 (07:55→20:56)
[2019-06-16] MEDS: NITROFURANTOIN (SR) 100 MG CAP PO ×2 (07:56→20:57)
[2019-06-16] MEDS: DICLOFENAC SODIUM 1% GEL 100 GM TUBE TP ×4 (07:58→20:56)
[2019-06-16] MEDS: ENOXAPARIN 30 MG/0.3 ML SYG SC (07:59)
[2019-06-16] MEDS: OXYBUTYNIN (XL) 5 MG TAB PO ×2 (08:08→20:57)
[2019-06-16] MEDS: SACCHAROMYCES BOULARDII 250 MG CAP PO ×2 (08:08→20:57)
[2019-06-16] MEDS: METHYLNALTREXONE 12 MG/0.6 ML VIAL SC (18:34)
[2019-06-16] MEDS: SENNA TAB PO (20:57)
[2019-06-17] MEDS: OXYCODONE/ACETAMINOPHEN (5/325) TAB PO ×2 (06:01→10:17)
[2019-06-17] MEDS: DICLOFENAC SODIUM 1% GEL 100 GM TUBE TP ×4 (08:27→20:53)
[2019-06-17] MEDS: DOCUSATE SODIUM 100 MG CAP PO ×2 (08:27→20:53)
[2019-06-17] MEDS: SACCHAROMYCES BOULARDII 250 MG CAP PO ×2 (08:28→20:53)
[2019-06-17] MEDS: NITROFURANTOIN (SR) 100 MG CAP PO (08:28)
[2019-06-17] MEDS: OXYBUTYNIN (XL) 5 MG TAB PO ×2 (08:28→20:53)
[2019-06-17] MEDS: FERROUS SULFATE (EC) 325 MG TAB PO ×3 (08:28→20:53)
[2019-06-17] MEDS: ENOXAPARIN 30 MG/0.3 ML SYG SC (08:29)
[2019-06-17] MEDS ORDERED: FOSFOMYCIN 3 GM PACKET PO (15:00)
[2019-06-17] MEDS: METHYLNALTREXONE 12 MG/0.6 ML VIAL SC (17:55)
[2019-06-17] MEDS: SENNA TAB PO (20:53)
[2019-06-18] MEDS: OXYCODONE/ACETAMINOPHEN (5/325) TAB PO (07:04)
[2019-06-18] MEDS: DOCUSATE SODIUM 100 MG CAP PO ×2 (09:04→20:39)
[2019-06-18] MEDS: SACCHAROMYCES BOULARDII 250 MG CAP PO ×2 (09:05→20:41)
[2019-06-18] MEDS: FERROUS SULFATE (EC) 325 MG TAB PO ×3 (09:06→20:39)
[2019-06-18] MEDS: OXYBUTYNIN (XL) 5 MG TAB PO ×2 (09:06→20:39)
[2019-06-18] MEDS: DICLOFENAC SODIUM 1% GEL 100 GM TUBE TP ×4 (09:07→20:39)
[2019-06-18] MEDS: ENOXAPARIN 30 MG/0.3 ML SYG SC (09:18)
[2019-06-18] MEDS: METHYLNALTREXONE 12 MG/0.6 ML VIAL SC (18:08)
[2019-06-18] MEDS: SENNA TAB PO (20:39)
[2019-06-19] MEDS: FERROUS SULFATE (EC) 325 MG TAB PO ×3 (09:01→20:24)
[2019-06-19] MEDS: OXYBUTYNIN (XL) 5 MG TAB PO ×2 (09:01→20:24)
[2019-06-19] MEDS: SACCHAROMYCES BOULARDII 250 MG CAP PO (09:01)
[2019-06-19] MEDS: DOCUSATE SODIUM 100 MG CAP PO ×2 (09:01→20:24)
[2019-06-19] MEDS: ENOXAPARIN 30 MG/0.3 ML SYG SC (09:02)
[2019-06-19] MEDS: DICLOFENAC SODIUM 1% GEL 100 GM TUBE TP ×4 (09:02→20:24)
[2019-06-19 13:27] LABS: ADD UMIC NO; UR ASCORBIC ACID NEGATIVE (NEGATIVE); UR BILIRUBIN (Dip) NEGATIVE (NEGATIVE); UR BLOOD (Dip) NEGATIVE (NEGATIVE); UR CLARITY CLEAR (CLEAR); UR COLOR YELLOW (YELLOW); UR GLUCOSE (Dip) NEGATIVE (NEGATIVE); UR KETONES (Dip) NEGATIVE (NEGATIVE); UR LEUKOCYTE ESTERASE (Dip) NEGATIVE Leu/ul (NEGATIVE); UR NITRITE (Dip) NEGATIVE (NEGATIVE); UR SPECIFIC GRAVITY (Dip) 1.008 (1.003-1.030); UR TOTAL PROTEIN (Dip) NEGATIVE (NEGATIVE); UR UROBILINOGEN (Dip) NEGATIVE (NEGATIVE)
[2019-06-19] MEDS: METHYLNALTREXONE 12 MG/0.6 ML VIAL SC (17:24)
[2019-06-19] MEDS: SENNA TAB PO (20:24)
[2019-06-20] MEDS: OXYCODONE/ACETAMINOPHEN (5/325) TAB PO ×2 (06:12→11:32)
[2019-06-20] MEDS: DOCUSATE SODIUM 100 MG CAP PO ×2 (09:07→20:29)
[2019-06-20] MEDS: OXYBUTYNIN (XL) 5 MG TAB PO ×2 (09:09→20:29)
[2019-06-20] MEDS: FERROUS SULFATE (EC) 325 MG TAB PO ×3 (09:09→20:29)
[2019-06-20] MEDS: DICLOFENAC SODIUM 1% GEL 100 GM TUBE TP ×4 (09:10→20:35)
[2019-06-20] MEDS: ENOXAPARIN 30 MG/0.3 ML SYG SC (09:20)
[2019-06-20] MEDS: METHYLNALTREXONE 12 MG/0.6 ML VIAL SC (17:57)
[2019-06-20] MEDS: SENNA TAB PO (20:29)
[2019-06-21] MEDS: OXYCODONE/ACETAMINOPHEN (5/325) TAB PO ×2 (06:07→09:59)
[2019-06-21] MEDS: FERROUS SULFATE (EC) 325 MG TAB PO ×3 (08:24→20:55)
[2019-06-21] MEDS: OXYBUTYNIN (XL) 5 MG TAB PO ×2 (08:24→20:54)
[2019-06-21] MEDS: DOCUSATE SODIUM 100 MG CAP PO ×2 (08:24→20:54)
[2019-06-21] MEDS: DICLOFENAC SODIUM 1% GEL 100 GM TUBE TP ×4 (08:30→20:55)
[2019-06-21] MEDS: ENOXAPARIN 30 MG/0.3 ML SYG SC (08:30)
[2019-06-21] MEDS: METHYLNALTREXONE 12 MG/0.6 ML VIAL SC (18:21)
[2019-06-21] MEDS: SENNA TAB PO (20:54)
[2019-06-22] MEDS: OXYCODONE/ACETAMINOPHEN (5/325) TAB PO ×2 (06:08→10:49)
[2019-06-22 07:15] LABS: ADD MAN DIFF? NO
[2019-06-22 07:24] LABS: WHITE BLOOD COUNT 5.4 10^3/ul (4.8-10.8)
[2019-06-22 07:24] LABS: BASOPHILS % 0.7 % (0.0-2.0); EOSINOPHILS # 0.2 10^3/ul (0.0-0.5); HEMATOCRIT 34.1 % (37.0-47.0); HEMOGLOBIN 10.4 g/dl (12.0-16.0); LYMPHOCYTES # 1.2 10^3/ul (0.8-2.9); LYMPHOCYTES % 21.7 % (15.0-51.0); MEAN CORPUSCULAR HEMOGLOBIN 30.2 pg (29.0-33.0); MEAN CORPUSCULAR HGB CONC 30.5 g/dl (32.0-37.0); MEAN CORPUSCULAR VOLUME 99.1 fl (82.0-101.0); MEAN PLATELET VOLUME 10.6 fl (7.4-10.4); MONOCYTE # 0.7 10^3/ul (0.3-0.9); MONOCYTES % 12.3 % (0.0-11.0); NEUTROPHIL # 3.3 10^3/ul (1.6-7.5); NEUTROPHILS % 61.1 % (39.0-77.0); PLATELET COUNT 273 10^3/UL (140-415); RED BLOOD COUNT 3.44 10^6/ul (4.20-5.40); RED CELL DISTRIBUTION WIDTH 15.9 % (11.5-14.5)
[2019-06-22] MEDS: DOCUSATE SODIUM 100 MG CAP PO ×2 (09:15→20:43)
[2019-06-22] MEDS: ENOXAPARIN 30 MG/0.3 ML SYG SC (09:15)
[2019-06-22] MEDS: ONDANSETRON (ODT) 4 MG TAB ODT (09:15)
[2019-06-22] MEDS: OXYBUTYNIN (XL) 5 MG TAB PO ×2 (09:16→20:43)
[2019-06-22] MEDS: FERROUS SULFATE (EC) 325 MG TAB PO ×3 (09:20→20:43)
[2019-06-22] MEDS: DICLOFENAC SODIUM 1% GEL 100 GM TUBE TP ×4 (09:21→21:41)
[2019-06-22] MEDS: METHYLNALTREXONE 12 MG/0.6 ML VIAL SC (18:30)
[2019-06-22] MEDS: SENNA TAB PO (20:44)
[2019-06-23] MEDS: OXYCODONE/ACETAMINOPHEN (5/325) TAB PO ×2 (06:03→13:19)
[2019-06-23] MEDS: DOCUSATE SODIUM 100 MG CAP PO ×2 (09:32→20:50)
[2019-06-23] MEDS: FERROUS SULFATE (EC) 325 MG TAB PO ×3 (09:32→20:50)
[2019-06-23] MEDS: OXYBUTYNIN (XL) 5 MG TAB PO ×2 (09:33→20:51)
[2019-06-23] MEDS: ENOXAPARIN 30 MG/0.3 ML SYG SC (09:34)
[2019-06-23] MEDS: DICLOFENAC SODIUM 1% GEL 100 GM TUBE TP ×3 (09:39→20:53)
[2019-06-23] MEDS: SENNA TAB PO (20:50)
[2019-06-24] MEDS: OXYBUTYNIN (XL) 5 MG TAB PO (09:25)
[2019-06-24] MEDS: DOCUSATE SODIUM 100 MG CAP PO (09:25)
[2019-06-24] MEDS: FERROUS SULFATE (EC) 325 MG TAB PO ×2 (09:25→13:26)
[2019-06-24] MEDS: DICLOFENAC SODIUM 1% GEL 100 GM TUBE TP ×2 (09:26→13:31)
[2019-06-24] MEDS: ENOXAPARIN 30 MG/0.3 ML SYG SC (09:30)
== END 2019-06-24 16:58 | disposition home health service (06) | DRG 560 ==
LOC: VRC 19:20
PROC: F07Z5ZZ Bed Mobility Treatment (ICD-10-PCS; principal; 2019-06-10)
PROC: F07Z8ZZ Transfer Training Treatment (ICD-10-PCS; 2019-06-10)
PROC: F07Z9ZZ Gait Training/Functional Ambulation Treatment (ICD-10-PCS; 2019-06-10)
PROC: F08Z2ZZ Grooming/Personal Hygiene Treatment (ICD-10-PCS; 2019-06-10)
PROC: F08Z1ZZ Dressing Techniques Treatment (ICD-10-PCS; 2019-06-10)
PROC: F08Z0ZZ Bathing/Showering Techniques Treatment (ICD-10-PCS; 2019-06-10)
DX: S72.141D Displaced intertrochanteric fracture of right femur, subsequent encounter for closed fracture with routine healing (principal); N39.0 Urinary tract infection, site not specified; D62 Acute posthemorrhagic anemia; F06.31 Mood disorder due to known physiological condition with depressive features; N39.41 Urge incontinence; K59.03 Drug induced constipation; K21.9 Gastro-esophageal reflux disease without esophagitis; M19.90 Unspecified osteoarthritis, unspecified site; M80.051D Age-related osteoporosis with current pathological fracture, right femur, subsequent encounter for fracture with routine healing; R52 Pain, unspecified; Z74.09 Other reduced mobility; W18.30XD Fall on same level, unspecified, subsequent encounter
CPT/HCPCS: 80048; 80053; 81001; 81003; 85025; 87081; 87086; 97110; 97112; 97116; 97150; 97163; 97530; 97535; 97542